=== PATIENT | male | born 1980 | race Caucasian/White ===

== ENCOUNTER 2016-11-17 02:08 | Day surgery (SDC) ==
[2016-11-17 02:16] VITALS: BP 175/78
--- NOTE | 2016-11-17 03:01 | PROVIDER DOCUMENTATION ---
HPI-General Adult - General Source: patient - History of Present Illness -Gen Adult Nature of Presenting Problems: 36 year old M presents to the ED with a cc of a foreign body in rectum. PT states that he has had a vibrator in rectum x1 hour and his is unable to get it out. Location of Pain/Injury: reports: other (rectum) Pain Radiation: reports: no radiation Severity: reports: mild Onset/Duration: reports: 1-3 hours ago Timing: reports: still present Similar Symptoms Previously?: No Recently seen or treated by another doctor?: No <Jennifer Camacho - Last Filed: 11/17/16 02:58> - General Source: patient <Francesco Salas - Last Filed: 11/17/16 04:28> - General Chief Complaint: General Adult Stated Complaint: FB IN RECTUM Time Seen by Provider: 11/17/16 02:30 Allergies/Adverse Reactions: Patient Allergies Allergy/AdvReac Type Severity Reaction Status Date / Time No Known Allergies Allergy Verified 11/17/16 02:17 Home Medications: Home Medication List Medication Instructions Recorded Confirmed Last Taken Type No Home Medications 11/17/16 11/17/16 Unknown History Review of Systems - Adult - REVIEW OF SYSTEMS - ADULT Constitutional: denies: chills, fever Eyes: reports: no symptoms reported Ears, Nose, Mouth & Throat: reports: no symptoms reported Cardiovascular: denies: chest pain, palpitations Respiratory: denies: cough, shortness of breath Gastrointestinal: denies: abdominal pain, diarrhea, nausea, vomiting Genitourinary: denies: dysuria, hematuria Musculoskeletal: reports: no symptoms reported Integumentary: reports: no symptoms reported Neurological: reports: no symptoms reported Psychiatric: reports: no symptoms reported Endocrine: reports: no symptoms reported Hematologic/Lymphatic: reports: no symptoms reported Allergic/Immunologic: reports: no symptoms reported All Other Systems: Reviewed and Negative <Jennifer Camacho - Last Filed: 11/17/16 02:58> Past History - Adult - PAST MEDICAL HISTORY-ADULT Review of Records: reports: Nursing Assessment Review, Medications Reviewed Major Childhood Illnesses: reports: denies history Cardiovascular: reports: denies history Respiratory: reports: denies history Gastrointestinal: reports: denies history Obstetrical/Gynecological: reports: denies history Genitourinary: reports: denies history Musculoskeletal: reports: denies history Neurological: reports: denies history Endocrine/Immune: reports: denies history Other Conditions: reports: denies history - PRIOR SURGERIES/PROCEDURES Surgical/Procedure History: reports: orthopedic (extremity) (amputation Right # 2 finger) - IMMUNIZATION STATUS Childhood Immunizations: See Nurse Assessment Flu Vaccine: See Nurse Assessment - FAMILY HISTORY Family History: reviewed, not pertinent - SOCIAL HISTORY Smoking: cigarettes Provider spent 3-5 mins advising pt. on dangers of tobacco.: Discussed manners to quit use, and f/u contacts for add'l counseling. Substance Use: none/never Alcohol Use Frequency: occasionally <Jennifer Camacho - Last Filed: 11/17/16 02:58> Physical Exam-General - PHYSICAL EXAM-ADULT Initial Vital Signs Reviewed: Yes - CONSTITUTIONAL General Appearance: appears well, alert, no apparent distress - RESPIRATORY Respiratory: chest non-tender, lungs clear, normal breath sounds - CARDIOVASCULAR Cardiovascular: normal peripheral pulses, regular rate, rhythm, no edema - GASTROINTESTINAL (ABDOMEN) Abdominal Exam: non tender, soft - SKIN Integumentary: normal color, normal turgor, warm/dry - PSYCHIATRIC Psych/Mental Status: normal mood/affect, normal thought content, normal thought process, oriented x 3 <Jennifer Camacho - Last Filed: 11/17/16 02:58> Procedures - ADDITIONAL PROCEDURES Additional Procedure: Anoscopy/Proctoscopy (Unable to remove FB in rectum with ring forceps) <Francesco Salas - Last Filed: 11/17/16 04:28> Departure <Jennifer Camacho - Last Filed: 11/17/16 02:58> - Departure Time of Disposition Order: 04:26 Certified Medical Emergency: Emergent <Francesco Salas - Last Filed: 11/17/16 04:28> - Departure DIAGNOSIS: Foreign body accidentally entering opening of body cavity Disposition: OTHER 70 Condition: Good Attestation - Scribe Verification/Attestation Scribe:: Jennifer Camacho Acting as Scribe for:: Francesco Salas Scribe documention review:: This chart was documented by a scribe and accurately reflects the service the provider performed and the decisions made by the provider. <Jennifer Camacho - Last Filed: 11/17/16 02:58> Physician Attestation - Physician Attestation I, the provider, attest to the following statement:: Francesco Salas Physician documentation Attestation:: This documentation recorded by the scribe accurately reflects the service I personally performed and the decisions made by me. <Jennifer Camacho - Last Filed: 11/17/16 02:58>
[2016-11-17] MEDS ORDERED: XYLOCAINE 2% VISCOUS MT ONE (03:25)
[2016-11-17] MEDS ORDERED: XYLOCAINE 2% JELLY ONE (03:30)
[2016-11-17] MEDS ORDERED: XYLOCAINE 2% JELLY TOP ONE (04:02)
[2016-11-17] MEDS ORDERED: TYLENOL PO ONE (04:58)
[2016-11-17 05:14] LABS: MANUAL DIFF NEEDED? NO
[2016-11-17 05:16] LABS: BASO% 0.6 % (0.0-0.8); EOS# 0.23 X1000 (0.0-0.7); EOS% 2.5 % (0.0-10.0); HEMATOCRIT 37.3 % (42.0-52.0); HEMOGLOBIN 12.6 g/dL (14.0-18.0); IMM GRAN# 0.02 X1000 (0.0-0.04); IMM GRAN% 0.2 % (0.0-0.5); LYMPH# 2.76 X1000 (1.2-3.4); LYMPH% 29.6 % (20.5-51.1); MCH 31.3 PG (27-31); MCHC 33.8 g/dL (33-37); MCV 92.6 FL (81-99); MONO# 0.85 X1000 (0.11-0.59); MONO% 9.1 % (1.7-9.3); MPV 9.9 FL (7.4-10.4); PLT 214 X1000 (130-400); RBC 4.03 XMIL (4.7-6.1)
[2016-11-17 05:28] LABS: AGAP 11; BUN 18 mg/dL (8-22); CALCIUM 8.6 mg/dL (8.8-10.2); CHLORIDE 104 mmol/L (98-107); COSMO 283; POTASSIUM 3.7 mmol/L (3.5-5.1); SODIUM 140 mmol/L (136-145); TCO2 25 mmol/L (25-35)
--- NOTE | 2016-11-17 06:36 | Diag Imaging Result Document ---
PROCEDURE NAME: KATIANA ABDOMEN - 11/17/2016 ABDOMEN SINGLE VIEW: FINDINGS: There is stool throughout the colon. The bowel loops are not dilated. No organomegaly. No abnormal abdominal or pelvic calcifications. There is a mechanical device/foreign body overlying the mid pelvis and sacrum. This was not present on the study from 12/2011. IMPRESSION: 1. Constipation. 2. Foreign body overlies the pelvis. MTDD
[2016-11-17] MEDS ORDERED: NS 1,000 ML IV SCH (07:00)
[2016-11-17] MEDS ORDERED: FLUZONE QUAD 2016-2017 SYRINGE IM ONE (08:35)
--- NOTE | 2016-11-17 10:01 | Diag Imaging Result Document ---
PROCEDURE NAME: KATIANA ABDOMEN - 11/17/2016 ABDOMEN SINGLE VIEW: COMPARISON: Compared to 11/17/2016 at 2:40 a.m. FINDINGS: The foreign body overlying the pelvis is no longer present. There is stool which remains throughout the colon. No organomegaly. No abnormal abdominal calcification. There is a pelvic phlebolith. IMPRESSION: 1. The foreign body is no longer present in the rectum/sigmoid colon. 2. Constipation.
--- NOTE | 2016-11-17 10:04 | HISTORY AND PHYSICAL ---
CHIEF COMPLAINT: Foreign body in the rectum. HISTORY: This is a 36-year-old who admits to placing a vibrator in his rectum last night around midnight; he has not been able to get out the foreign body. He presents to the emergency department because of that. He denies any medical problems. Denies any history of surgery. ALLERGIES: He has no known drug allergies. MEDICATIONS: No home medications. 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 SOCIAL HISTORY: Does smoke cigarettes. Denies substance abuse. Otherwise occasionally drinks alcohol. FAMILY HISTORY: Noncontributory. REVIEW OF SYSTEMS: Negative in the review of systems. PHYSICAL EXAMINATION: VITAL SIGNS: He is afebrile. Heart rate 109, respiratory rate 18, blood pressure 175/78. NECK: No cervical adenopathy. LUNGS: Bilateral breath sounds. HEART: Regular rhythm. ABDOMEN: Soft, nontender. RECTAL EXAM: Was not performed. KUB shows the foreign body in his rectum. Quite a bit of stool was noted in his colon. ASSESSMENT: Foreign body of the rectum. PLAN: The plan will be removal of the foreign body under anesthesia. Discussed this with him and he understands.
== END 2016-11-17 10:20 | disposition home or self-care (01) ==
LOC: ED 02:08 → OPS 05:55 → 4N 07:45 → OPS 10:20
PROVIDERS: ATTEND Surgery
DX: T18.5XXA Foreign body in anus and rectum, initial encounter (principal); F17.210 Nicotine dependence, cigarettes, uncomplicated; Z89.021 Acquired absence of right finger(s); Z71.6 Tobacco abuse counseling; Z23 Encounter for immunization
CPT/HCPCS: 36415; 74000; 80048; 85025; 99285; Q2038

== ENCOUNTER 2016-12-16 01:25 | Inpatient (IN) ==
[2016-12-16] MEDS ORDERED: DUONEB (A & A) INH ONE (01:32)
--- NOTE | 2016-12-16 01:39 | PROVIDER DOCUMENTATION ---
HPI-General Adult - General Source: patient - History of Present Illness -Gen Adult Nature of Presenting Problems: 36 Y/O M presents to ED with General c/o. Pt states he's had flu like symptoms for 4 days, hasn't been to work due to the symptoms. Pt was brought in by EMS, c /o of body aches, weakness, SOB, cough, headache. Location of Pain/Injury: reports: generalized Pain Radiation: reports: no radiation Quality of Pain: reports: none Severity: reports: mild, moderate Onset/Duration: reports: 4 days ago Timing: reports: still present Context/Activities at Onset: reports: none Associated Symptoms: reports: cough, fever/chills, headaches, muscle aches, weakness. denies: nausea <Pooja Almeida - Last Filed: 12/16/16 02:51> <Ede Pichardo - Last Filed: 12/16/16 05:33> - General Chief Complaint: Cold Symptoms Stated Complaint: flu like s/s Time Seen by Provider: 12/16/16 01:31 Allergies/Adverse Reactions: Patient Allergies Allergy/AdvReac Type Severity Reaction Status Date / Time No Known Allergies Allergy Verified 12/16/16 02:16 Home Medications: Home Medication List Medication Instructions Recorded Confirmed Last Taken Type No Home Medications 11/17/16 12/16/16 Unknown History Review of Systems - Adult - REVIEW OF SYSTEMS - ADULT Constitutional: reports: fever. denies: chills Eyes: reports: no symptoms reported Ears, Nose, Mouth & Throat: reports: no symptoms reported Cardiovascular: reports: no symptoms reported Respiratory: reports: cough, wheezing Gastrointestinal: denies: abdominal pain, diarrhea, nausea, vomiting Genitourinary: reports: no symptoms reported Musculoskeletal: reports: muscle aches Integumentary: reports: no symptoms reported Neurological: reports: headache/migraines Psychiatric: reports: no symptoms reported Endocrine: reports: no symptoms reported Hematologic/Lymphatic: reports: no symptoms reported Allergic/Immunologic: reports: no symptoms reported All Other Systems: Reviewed and Negative <Pooja Almeida - Last Filed: 12/16/16 02:51> Past History - Adult - PAST MEDICAL HISTORY-ADULT Review of Records: reports: Old Records Reviewed, Nursing Assessment Review, Medications Reviewed, Social history reviewed & non-contributory. Major Childhood Illnesses: reports: denies history Cardiovascular: reports: denies history Respiratory: reports: denies history Gastrointestinal: reports: denies history Obstetrical/Gynecological: reports: denies history Genitourinary: reports: denies history Musculoskeletal: reports: denies history Neurological: reports: denies history Endocrine/Immune: reports: denies history Other Conditions: reports: denies history - PRIOR SURGERIES/PROCEDURES Surgical/Procedure History: reports: orthopedic (extremity) (amputation Right # 2 finger) - IMMUNIZATION STATUS Childhood Immunizations: See Nurse Assessment Flu Vaccine: See Nurse Assessment - FAMILY HISTORY Family History: reviewed, not pertinent - SOCIAL HISTORY Smoking: cigarettes, greater than 1 pack/day Living Situation: family <Pooja Almeida - Last Filed: 12/16/16 02:51> Physical Exam-General - PHYSICAL EXAM-ADULT Initial Vital Signs Reviewed: Yes - CONSTITUTIONAL General Appearance: appears well, alert, no apparent distress - EYES Eyes: PERRL/EOMI, pink conjunctivae, fundi clear, no AV nicking - HEAD, EARS, NOSE, MOUTH & THROAT HENMT: normocephalic/atraumatic, moist mucous membranes, normal ENT inspection, TMs normal, pharynx normal - NECK Neck: non-tender, full range of motion, supple, normal inspection - RESPIRATORY Respiratory: chest non-tender, wheezing (bilateral) - CARDIOVASCULAR Cardiovascular: tachycardia - GASTROINTESTINAL (ABDOMEN) Abdominal Exam: normal bowel sounds, non tender, soft - LYMPHATIC Lymphatic: no adenopathy - MUSCULOSKELETAL Back Exam: normal inspection, no CVA tenderness, no vertebral tenderness Extremity: normal range of motion, non-tender, normal gait - SKIN Integumentary: normal color, normal turgor, warm/dry - NEUROLOGIC Neurologic: traffic circuit engineer II-XII nml as tested, grossly normal - PSYCHIATRIC Psych/Mental Status: normal mood/affect, normal thought content, normal thought process, oriented x 3 <Pooja Almeida - Last Filed: 12/16/16 02:51> Progress - REASSESSMENT Reassessment #1 Time Reassessed: 02:51 ( spoke to Pt about sexual history,due to previous findings and hospital visit. Pt states that he does use vibrators for pleasure, but has not had sexual activity or sexual contact in many months. PT agrees to do an HIV test, states never been tested before for one.) Status: improving - XRAY 1 XRAY Study: Chest Impression: Abnormal XRAY Interpretation: pneumonia <Pooja Almeida - Last Filed: 12/16/16 02:51> - REASSESSMENT Reassessment #1 Time Reassessed: 04:15 Status: improving - CT/MRI 1 CT Study: Angiogram (no pe/atypical bilat infection) - CONSULTS/PCP/HOSPITALIST Notification #1 *Consult/PCP/Hospitalist*: dr perez Time Discussed: 04:16 (recomended to get chest ct) #2 Consult: dr perez Time Discussed: 05:33 ([facility] report) <Ede Pichardo - Last Filed: 12/16/16 05:33> Departure <Pooja Almeida - Last Filed: 12/16/16 02:51> - Departure Time of Disposition Order: 04:17 Certified Medical Emergency: Emergent <Ede Pichardo - Last Filed: 12/16/16 05:33> - Departure DIAGNOSIS: SOB (shortness of breath), Atypical pneumonia Disposition: ADMITTED INPATIENT 09 Condition: Stable Referrals: None,PCP [Primary Care Provider] - Attestation - Scribe Verification/Attestation Scribe:: Pooja Almeida Acting as Scribe for:: Ede Pichardo Scribe documention review:: This chart was documented by a scribe and accurately reflects the service the provider performed and the decisions made by the provider. <Pooja Almeida - Last Filed: 12/16/16 02:51> Physician Attestation
[2016-12-16] MEDS ORDERED: LEVAQUIN 750 MG/D5W 150 ML IV ONE (01:50)
[2016-12-16] MEDS ORDERED: ROCEPHIN 1 GM/NS 50 ML IV ONE (01:50)
[2016-12-16 02:38] LABS: BASO% 3.6 % (0.0-0.8); EOS# 0.07 X1000 (0.0-0.7); EOS% 0.8 % (0.0-10.0); HEMATOCRIT 36.6 % (42.0-52.0); IMM GRAN# 0.02 X1000 (0.0-0.04); IMM GRAN% 0.2 % (0.0-0.5); LYMPH# 4.39 X1000 (1.2-3.4); LYMPH% 47.8 % (20.5-51.1); MANUAL DIFF NEEDED? NO; MCH 30.2 PG (27-31); MCHC 32.8 g/dL (33-37); MCV 92.2 FL (81-99); MONO# 0.86 X1000 (0.11-0.59); MONO% 9.4 % (1.7-9.3); MPV 9.8 FL (7.4-10.4); NEUT% 38.2 % (42.2-75.2); PLT 196 X1000 (130-400); RBC 3.97 XMIL (4.7-6.1)
[2016-12-16 02:49] LABS: AGAP 13; ALBUMIN 3.3 g/dL (3.5-5.0); ALKALINE PHOSPHATASE 91 U/L (32-122); BUN 7 mg/dL (8-22); CALCIUM 8.6 mg/dL (8.8-10.2); CHLORIDE 103 mmol/L (98-107); COSMO 278; GOT 34 U/L (10-34); GPT 36 U/L (10-44); POTASSIUM 3.9 mmol/L (3.5-5.1); SODIUM 140 mmol/L (136-145); TCO2 24 mmol/L (25-35); TOTAL BILIRUBIN 0.37 mg/dL (0.20-1.00); TOTAL PROTEIN 6.6 g/dL (6.3-8.3)
[2016-12-16] MEDS ORDERED: TORADOL IV ONE (03:17)
[2016-12-16] MEDS ORDERED: TYLENOL PO ONE (03:17)
[2016-12-16 03:50] LABS: ALLEN TEST YES; BE 1.7 mmoll (-3.0-3.0); BLOOD TYPE ARTERIAL; DRAW SITE R BRACHIAL; O2(CT) 19.1 mL/dL (15.0-23.0); PCO2(98.6) 38 mmHg (35-45); PO2(98.6) 68 mmHg (60-100); SAMPLE BLOOD; SAO2 95.1 % (95.0-100.0); pH(98.6) 7.44 (7.35-7.45)
[2016-12-16 03:52] LABS: MODALITY ROOM AIR
[2016-12-16] MEDS ORDERED: LEVAQUIN 750 MG in NS 150 ML IV SCH (06:15)
--- NOTE | 2016-12-16 07:21 | Diag Imaging Result Document ---
PROCEDURE NAME: CHEST-2 VIEWS - 12/16/2016 FRONTAL AND LATERAL CHEST, TWO VIEWS: COMPARISON: 09/03/2012. FINDINGS: There are multifocal nodular infiltrates bilaterally which have developed since the prior study. The heart is borderline mildly prominent. No pleural effusions. IMPRESSION: Diffuse bilateral nodular infiltrates.
--- NOTE | 2016-12-16 07:23 | HISTORY AND PHYSICAL ---
CHIEF COMPLAINT: Cough and shortness of breath x4 days. HISTORY OF PRESENTING ILLNESS: A 36-year-old male who presents to emergency department with 4 days history of having a persistent cough that is productive and was short of breath. He was evaluated in the ER, he was somewhat hypoxic. He was put on supplemental oxygen and given some nebulizer treatment and it was thought that he would need hospitalization for further management. He had imaging done which did show some bilateral had infiltrate suspicious for pneumonia. It is probably atypical, and this will require hospitalization for further management. At the time of my examination, he had denied any headache, chest pain, hemoptysis, or weight changes but complained to having some shortness of breath and persistent cough. PAST MEDICAL HISTORY: None. PAST SURGICAL HISTORY: None. ALLERGIES: No known drug allergies. CURRENT MEDICATIONS: None. SOCIAL HISTORY: Ten pack years history of smoking. Admits to social alcohol use. Denies any illicit drug use. FAMILY HISTORY: Positive for coronary disease in father. REVIEW OF SYSTEMS: Twelve point review of systems as listed in the HPI. Other systems negative. PHYSICAL EXAMINATION: GENERAL: Cooperative, friendly male. He is resting more comfortably now. VITAL SIGNS: Temperature 98.9 degrees, pulse 86, respiration 19, blood pressure 165/92, he is saturating 99%. HEENT: Atraumatic, normocephalic. Extraocular movements intact. PERRLA. NECK: No masses. CHEST: Rhonchi. CARDIOVASCULAR: Regular rate and rhythm. ABDOMEN: Soft. Positive bowel sounds. EXTREMITIES: No edema. NEUROLOGIC: He is awake, alert, oriented x3. : No bladder distention. SKIN: Warm. LABORATORIES AND STUDIES: WBCs 9.18, hemoglobin 12.1, hematocrit 36.6, platelets 196,000. PO2 is 68. Sodium 140, potassium 3.9, chloride 103, CO2 24, BUN is 7. Creatinine is 1.0, glucose is 107. ASSESSMENT: A 36-year-old male without any significant past medical history who presented to the emergency department with 4 days' history of coughing and shortness of breath. He was somewhat hypoxic during his initial presentation, and imaging showed bilateral infiltrates as per ER physician, and due to these findings it was thought that he would need hospitalization for further management. 1. Suspected pneumonia. 2. Hypoxemia. PLAN: 1. We will admit patient to medical floor with telemetry. 2. We will continue patient on supplemental oxygen. Chevy. 3. We will start patient on IV antibiotics and check blood cultures. 4. We will check an HIV screen. 5. We will put patient on DVT prophylaxis with SCDs. 6. We will continue to follow and reassess.
--- NOTE | 2016-12-16 09:40 | Diag Imaging Result Document ---
PROCEDURE NAME: ANGIOGRAM/PULMONARY ARTERIES - 12/16/2016 CTA CHEST: COMPARISON: None available. FINDINGS: There is no evidence of pulmonary embolism. There is no evidence of aortic dissection or aneurysm. There are Innumerable ill-defined nodular densities scattered throughout both lungs. Some exhibit tiny internal cavitations. Differential considerations include atypical infection with cavitation. Metastatic disease with cavitation is possible. Less likely, Krystina's granulomatosis should be considered. There is trace pleural fluid on the right, and there is a very small pericardial fluid collection. There is no evidence of pneumothorax. IMPRESSION: 1. Innumerable ill-defined nodular densities scattered throughout both lungs, some of which exhibit vague internal cavitation. Please see the above discussion. 2. Marked mediastinal and hilar lymphadenopathy. 3. No evidence of pulmonary embolism.
[2016-12-16] MEDS: NS 1,000 ML IV SCH (18:53)
[2016-12-16 19:31] LABS: AGAP 14; ALBUMIN 3.4 g/dL (3.5-5.0); ALKALINE PHOSPHATASE 105 U/L (32-122); BUN 10 mg/dL (8-22); CALCIUM 8.8 mg/dL (8.8-10.2); CHLORIDE 102 mmol/L (98-107); COSMO 279; GOT 33 U/L (10-34); GPT 34 U/L (10-44); POTASSIUM 3.8 mmol/L (3.5-5.1); SODIUM 140 mmol/L (136-145); TCO2 24 mmol/L (25-35); TOTAL BILIRUBIN 0.33 mg/dL (0.20-1.00); TOTAL PROTEIN 6.7 g/dL (6.3-8.3)
--- NOTE | 2016-12-16 20:38 | PROGRESS NOTE ---
DATE: 12/16/2016 SUBJECTIVE: I was called by the nurse because this patient has been taking medications on his own. Apparently he took cold medications because he was asking for pain medication and nobody was giving him that. I saw the records and he received acetaminophen 650 mg p.o. once at 3 a.m. and also he received Ketoralac 30 mg IV around the same hour. As per the nurse, he told her that he wants pain medication once, apparently this patient left the building, went outside but we do not know why, and then he came back. Then the nurse called me because she realized that this patient was taking medication by himself. When I saw the cold medication, he took around 6.5 g of acetaminophen and also he received in the emergency department like I mentioned before 650 mg at 1 time. So this patient received a total of more than 7 g at least. He talked to the nurses that he took all the pills that were inside the box and he told me that he took just a half of one of the boxes and 4 of another box. An NG tube was placed and I put this patient on IV fluids at 125 mL/h. I called the retail warehouse associate and I will transfer this patient to ICU for close observation. I asked for a CMP level every 4 hours and also acetaminophen level every 4 hours. I already talked to the nurse practitioner about this case, and I have an acetaminophen level result back, it is low for now, but we will continue to monitor this patient in the ICU. Also, I have an AST, ALT and alkaline phosphatase that is completely normal. AST 33, ALT 34, alkaline phosphatase 105, total bilirubin 0.33. For now I am not going to start any treatment, just IV fluids. We will avoid acetaminophen and we will continue with levofloxacin for the possible atypical pneumonia. OBJECTIVE: Vital Signs: Temperature 98.7 degrees, pulse 88, respiratory rate 15, O2 saturation 95% on room air. HEENT: Head normocephalic. No trauma. PERRLA. Neck: Supple. No JVD. No masses. Central trachea. Chest: Bilateral scattered rhonchi bilaterally. Abdomen: Soft, nontender, nondistended. Extremities: No edema. No clubbing. No cyanosis. Neurological examination: The patient is alert and oriented x3. No focal neurological deficit. LABORATORY: Sodium 140, potassium 3.8, chloride 102, bicarbonate 24, BUN 10, creatinine 1.1, glucose 105, calcium 8.8, AST 33, ALT 34, alkaline phosphatase 105, albumin 3.4. ASSESSMENT AND PLAN: 1. Suspected atypical pneumonia. Pulmonary Department has been consulted, pending recommendations. For now this patient will continue with IV fluids and with quinolones. 2. Hypoxemia. The patient at this moment is not having any hypoxemia even though he is not on oxygen. We will continue to monitor. 3. Possible acetaminophen intoxication. This patient took more than 7.5 g in the past 24 hours, at least 6.5 g by himself. We will transfer this patient to the ICU and I will monitor the CBC and acetaminophen level. 4. I talked to the patient and I explained to him the risk of having taken acetaminophen by himself. This patient looks noncooperative and I can see that this tony is also aggressive.
[2016-12-16 21:22] LABS: UR AMPHETAMINES QUAL NONE DETECTED (NONE DETECT); UR BARBITUATES QUAL NONE DETECTED (NONE DETECT); UR BENZODIAZEPIN QUAL NONE DETECTED (NONE DETECT); UR CANNABINOIDS QUAL NONE DETECTED (NONE DETECT); UR COCAINE QUAL PRESUMPTIVE POSITIVE (NONE DETECT); UR METHADONE QUAL NONE DETECTED (NONE DETECT); UR OPIATES QUAL NONE DETECTED (NONE DETECT); UR OXYCODONE QUAL NONE DETECTED (NONE DETECT); UR PCP QUAL NONE DETECTED (NONE DETECT)
--- NOTE | 2016-12-16 22:41 | Diag Imaging Result Document ---
PROCEDURE NAME: CHEST/ABD TUBE PLACEMENT - 12/16/2016 SINGLE FRONTAL RADIOGRAPH OF THE LOWER CHEST AND UPPER ABDOMEN: COMPARISON: Chest radiograph dated 12/16/2016. FINDINGS: There is a newly placed NG tube with the tip projecting well below the diaphragm and assumed to be in the stomach in the expected position. Limited views of the lung bases are grossly stable. IMPRESSION: Interval placement of NG tube in the expected position as described.
[2016-12-16 22:46] LABS: AGAP 11; ALBUMIN 3.3 g/dL (3.5-5.0); ALKALINE PHOSPHATASE 100 U/L (32-122); BUN 10 mg/dL (8-22); CALCIUM 8.9 mg/dL (8.8-10.2); CHLORIDE 102 mmol/L (98-107); COSMO 277; GOT 27 U/L (10-34); GPT 33 U/L (10-44); POTASSIUM 4.5 mmol/L (3.5-5.1); SODIUM 139 mmol/L (136-145); TCO2 26 mmol/L (25-35); TOTAL BILIRUBIN 0.31 mg/dL (0.20-1.00); TOTAL PROTEIN 6.8 g/dL (6.3-8.3)
[2016-12-17] MEDS: NS 1,000 ML IV SCH ×2 (02:52→11:57)
[2016-12-17] MEDS ORDERED: LEVAQUIN 750 MG/D5W 150 ML IV SCH (03:00)
[2016-12-17 03:58] LABS: BASO% 2.2 % (0.0-0.8); EOS# 0.03 X1000 (0.0-0.7); EOS% 0.3 % (0.0-10.0); HEMATOCRIT 31.2 % (42.0-52.0); HEMOGLOBIN 10.2 g/dL (14.0-18.0); IMM GRAN# 0.04 X1000 (0.0-0.04); IMM GRAN% 0.4 % (0.0-0.5); LYMPH# 5.03 X1000 (1.2-3.4); LYMPH% 54.9 % (20.5-51.1); MANUAL DIFF NEEDED? YES; MCH 30.2 PG (27-31); MCHC 32.7 g/dL (33-37); MCV 92.3 FL (81-99); MONO# 0.88 X1000 (0.11-0.59); MONO% 9.6 % (1.7-9.3); MPV 9.7 FL (7.4-10.4); NEUT% 32.6 % (42.2-75.2); PLT 184 X1000 (130-400); RBC 3.38 XMIL (4.7-6.1)
[2016-12-17 04:05] LABS: INR 1.16; PROTIME 12.3 Seconds (9.2-11.7)
[2016-12-17 04:09] LABS: BANDS 4 % (0-1); BASO 2 % (0-1); LYMPHS 52 % (21-51); MONO 8 % (1-9)
[2016-12-17 04:10] LABS: AGAP 12; ALBUMIN 2.9 g/dL (3.5-5.0); ALKALINE PHOSPHATASE 83 U/L (32-122); BUN 8 mg/dL (8-22); CALCIUM 7.1 mg/dL (8.8-10.2); CHLORIDE 107 mmol/L (98-107); COSMO 279; GOT 23 U/L (10-34); GPT 26 U/L (10-44); POTASSIUM 3.4 mmol/L (3.5-5.1); SODIUM 140 mmol/L (136-145); TCO2 21 mmol/L (25-35); TOTAL BILIRUBIN 0.24 mg/dL (0.20-1.00)
[2016-12-17] MEDS ORDERED: KLOR-CON PO ONE ×2 (06:09→08:31)
[2016-12-17] MEDS ORDERED: PRINIVIL PO SCH (09:00)
[2016-12-17 09:07] LABS: AGAP 14; ALKALINE PHOSPHATASE 93 U/L (32-122); BUN 7 mg/dL (8-22); CALCIUM 8.6 mg/dL (8.8-10.2); CHLORIDE 101 mmol/L (98-107); COSMO 270; GOT 24 U/L (10-34); GPT 28 U/L (10-44); SODIUM 136 mmol/L (136-145); TCO2 21 mmol/L (25-35); TOTAL PROTEIN 6.5 g/dL (6.3-8.3)
[2016-12-17 09:59] LABS: HIV ANTIBODY SCREEN SEE COMMENTS (())
[2016-12-17 12:12] VITALS: BP 148/84
--- NOTE | 2016-12-17 12:40 | PROGRESS NOTE ---
DATE: 12/17/2016 SUBJECTIVE: This patient states that he is feeling better. He is still complaining of mild shortness of breath and chest pain but compared with admission and yesterday, he feels better. This patient told me yesterday that he did not do drugs before, but we have a positive cocaine result in the drug screen. I talked to him today again about this issue, and he told me that he forgot to tell me yesterday, and he does cocaine sporadically. OBJECTIVE: Vital signs: Temperature 98.8, pulse 93, respiratory rate 18, blood pressure 158/96, oxygen saturation 95 on room air. HEENT: Head normocephalic, no trauma, JANY. Neck: No JVD, no masses. Central trachea. Chest: Bilateral scattered rhonchi. No wheezing, no rales. Abdomen: Soft, nontender, nondistended, no hepatosplenomegaly. Extremities: No edema, no clubbing, no cyanosis. Neurological: The patient is alert and oriented x3, no focal neurologic deficits. LABORATORY: WBC 9.1, hemoglobin 10.2, hematocrit 31.2, platelets 184. Sodium 136, potassium 4, chloride 101, bicarbonate 21, BUN 7, creatinine 1, glucose 106, calcium 8.6. Albumin 3. Acetaminophen level less than 1.2. Urine cocaine screen positive. HIV nonreactive. ASSESSMENT AND PLAN: 1. Atypical pneumonia. I will continue with the same treatment. He is getting better. Probably I will discharge this patient tomorrow. He is getting levofloxacin and IV fluids. 2. Hypoxemia. This patient is on room air, and he is not having any low oxygen saturation. Resolved. 3. Possible acetaminophen intoxication. This patient took more than 7.5 g in a period of less than 24 hours. We monitored the acetaminophen level and the liver function tests, and all of them are stable. I will transfer this patient to a medical floor to continue with his treatment. 4. Hypertension. This patient has been having his systolic blood pressure around the 150s. I will start this patient on MARLENY inhibitors. I will avoid beta-blockers because of the risk of cocaine abuse, and I will monitor the blood pressure. 5. Cocaine abuse. This patient states that he is not doing it every day, just occasionally. The last time that he did that was 1 week ago, as per the patient. I advised this patient against drug abuse and I will continue with daily cessation education.
[2016-12-18] MEDS ORDERED: LEVAQUIN PO SCH (09:00)
== END 2016-12-17 16:19 | disposition left against medical advice (07) | DRG 195 ==
LOC: EDBD → ED 01:25 → EDIPHOLD 06:28 → 3N 12:27 → ICU 21:06
PROVIDERS: ATTEND Internal Medicine
DX: J18.9 Pneumonia, unspecified organism (principal); I10 Essential (primary) hypertension; F17.210 Nicotine dependence, cigarettes, uncomplicated; Z89.021 Acquired absence of right finger(s); R09.02 Hypoxemia; Z82.49 Family history of ischemic heart disease and other diseases of the circulatory system; T39.1X1A Poisoning by 4-Aminophenol derivatives, accidental (unintentional), initial encounter; Z91.14 Patient's other noncompliance with medication regimen; F14.10 Cocaine abuse, uncomplicated
CPT/HCPCS: 71020; 71275; 74000; 80053; 82805; 83605; 83880; 85025; 85610; 86701; 87040; 87804; 94640; 94761; 94799; G0480; J0696; J1885; J7030; Q9967; 80324; 80345; 80346; 80349; 80353; 80358; 80361; 80365; 83992

== ENCOUNTER 2019-05-18 14:28 | Inpatient (IN) ==
--- NOTE | 2019-05-18 14:35 | PROVIDER DOCUMENTATION ---
HPI-Chest Pain - General Chief Complaint: Chest Pain Stated Complaint: CHEST PAIN Time Seen by Provider: 05/18/19 14:31 Source: patient Allergies/Adverse Reactions: Patient Allergies Allergy/AdvReac Type Severity Reaction Status Date / Time No Known Allergies Allergy Verified 05/18/19 15:16 Home Medications: Home Medication List Medication Instructions Recorded Confirmed Last Taken Type NK [No Home Medications] 05/18/19 05/18/19 Unknown History - History of Present Illness-CP Nature of Presenting Problem: 38 yr old M, hx of substance abuse, presenting with a several hour history of left sided chest pain. States it started this morning, about 10AM, was constant, 5/10, with some radiation of uncomfortable "shocks" down the left arm. Pain did not resolve, prompting the patient to come in to the ED. He denies nausea, vomiting, shortness of breath, dizziness. No reproduction of pain with palpation of chest. Denies any heavy lifting, though the patient reports running 5 miles at 7am this morning, which he does twice a week for the past two months, in addition to a daily walk. . States he took two Luna aspirins when the pain started, and had mild improvement an hour after taking the medicine. States s imilar symptoms did occur previously, earlier this week, only lasting a few minutes. Denies any substance use, stating he has been off of opioid use of a little over a year, and has stopped smoking as of two weeks ago Location: reports: substernal Chest Pain Radiation: reports: arms (radiation of uncomfortable shocks down the left arm) Quality of Pain: reports: other (patient not able to describe quality of pain - just insists that it is painful) Severity in ED: mild Onset/Duration: 4-6 hours ago Timing: still present, improving, constant Context/Activities at Onset: reports: none Modifying Factors: improves with: analgesics Associated Symptoms: reports: denies symptoms Nitro Today/Relief: no nitro taken today Aspirin Treatment Today: 325 mg x 1, provided at home Similar Symptoms Previously?: Yes (earlier this week, lasted for a few minutes) Recently Seen Here or By Another Healthcare Provider: No Review of Systems - Adult - REVIEW OF SYSTEMS - ADULT Constitutional: reports: no symptoms reported Eyes: reports: no symptoms reported Ears, Nose, Mouth & Throat: reports: no symptoms reported Cardiovascular: reports: see HPI, chest pain Respiratory: reports: no symptoms reported Gastrointestinal: reports: no symptoms reported Genitourinary: reports: no symptoms reported Musculoskeletal: reports: no symptoms reported Neurological: reports: no symptoms reported Psychiatric: reports: no symptoms reported Endocrine: reports: no symptoms reported Hematologic/Lymphatic: reports: no symptoms reported Allergic/Immunologic: reports: no symptoms reported Past History - Adult - PAST MEDICAL HISTORY-ADULT Review of Records: reports: Nursing Assessment Review, Medications Reviewed Major Childhood Illnesses: reports: denies history Cardiovascular: reports: denies history Respiratory: reports: denies history Gastrointestinal: reports: denies history Obstetrical/Gynecological: reports: denies history Genitourinary: reports: denies history Musculoskeletal: reports: denies history Neurological: reports: denies history Endocrine/Immune: reports: denies history Other Conditions: reports: denies history - PRIOR SURGERIES/PROCEDURES Surgical/Procedure History: reports: orthopedic (extremity) (amputation Right #2 finger) - IMMUNIZATION STATUS Childhood Immunizations: See Nurse Assessment Flu Vaccine: See Nurse Assessment - FAMILY HISTORY Family History: CAD under 55yo (father had ICD placed at age 46; uncle passed from [place] around same age; aunt had heart disease as well) - SOCIAL HISTORY Smoking: quit less than 1 year, cigarettes (1 ppd for 19 yrs; quit 2-3 wks ago) Substance Use: none presently/history of abuse Physical Exam-General - PHYSICAL EXAM-ADULT Initial Vital Signs Reviewed: Yes - CONSTITUTIONAL General Appearance: appears well, alert, no apparent distress - EYES Eyes: PERRL/EOMI - HEAD, EARS, NOSE, MOUTH & THROAT HENMT: normocephalic/atraumatic, moist mucous membranes, normal ENT inspection - NECK Neck: non-tender, full range of motion - RESPIRATORY Respiratory: chest non-tender, lungs clear, normal breath sounds, no respiratory distress - CARDIOVASCULAR Cardiovascular: regular rate, rhythm, no JVD, no murmur - GASTROINTESTINAL (ABDOMEN) Abdominal Exam: normal bowel sounds, non tender, soft - MUSCULOSKELETAL Extremity: no pedal edema, no calf tenderness, other (well healed surgical amputation of right index finger at the DIP) - SKIN Integumentary: normal color - PSYCHIATRIC Psych/Mental Status: normal mood/affect - HEART Score HEART Score: History: Slightly Suspicious HEART Score: ECG: Normal HEART Score: Age: < or = 45 Years HEART Score: Risk Factors for Atherosclerotic Disease: > or = 3 Risk Factors or History of Atherosclerotic Disease HEART Score: Troponin: < or = Normal Limit Total HEART Score:: 2 Progress - PLAN OF CARE/RESULTS Progress/Plan/Lab Results: Vital Signs - 8 hr 05/18/19 14:32 05/18/19 17:55 Temperature 97.4 F L 97.9 F Pulse Rate 63 54 L Respiratory Rate 16 16 Blood Pressure 139/82 115/61 O2 Sat by Pulse Oximetry 98 99 Laboratory Results - last 24 hr 05/18/19 05/18/19 05/18/19 15:07 15:07 15:07 WBC 8.28 RBC 4.36 L Hgb 12.9 L Hct 38.1 L MCV 87.4 MCH 29.6 MCHC 33.9 RDW Std Deviation 12.4 Plt Count 221 MPV 9.9 Immature Gran % (Auto) 0.0 Neut % (Auto) 53.3 Lymph % (Auto) 35.0 [place] % (Auto) 7.6 Eos % (Auto) 3.3 Baso % (Auto) 0.8 Immature Gran # (Auto) 0.00 Neut # (Auto) 4.41 Lymph # (Auto) 2.90 [place] # (Auto) 0.63 H Eos # (Auto) 0.27 Baso # (Auto) 0.07 Sodium Potassium Chloride Carbon Dioxide Anion Gap BUN Creatinine Estimated GFR/1.73 m2 BUN/Creatinine Ratio Glucose Calculated Osmolality Calcium Total Bilirubin AST ALT Alkaline Phosphatase Creatine Kinase 202 Troponin T < 0.010 Total Protein Albumin Globulin Albumin/Globulin Ratio Urine Source Urine Color Urine Turbidity Urine pH Ur Specific [place] Urine Protein Ur Glucose (Stick) Ur Ketones (Stick) Urine Blood Urine Nitrite Urine Bilirubin Urobilinogen Dipstick Urine Leukocytes Urine WBC (Auto) Urine RBC (Auto) U Epithel Cells (Auto) Urine Bacteria (Auto) Urine Opiates Screen Ur Oxycodone Screen Ur Methadone, Qual Ur Barbiturates Screen Ur Phencyclidine Scrn Ur Amphetamines Screen U Benzodiazepines Scrn Urine Cocaine Screen U Cannabinoids Screen 05/18/19 05/18/19 05/18/19 15:07 15:57 15:57 WBC RBC Hgb Hct MCV MCH MCHC RDW Std Deviation Plt Count MPV Immature Gran % (Auto) Neut % (Auto) Lymph % (Auto) [place] % (Auto) Eos % (Auto) Baso % (Auto) Immature Gran # (Auto) Neut # (Auto) Lymph # (Auto) [place] # (Auto) Eos # (Auto) Baso # (Auto) Sodium 139 Potassium 3.7 Chloride 104 Carbon Dioxide 27 Anion Gap 8 BUN 16 Creatinine 1.1 Estimated GFR/1.73 m2 > 60 BUN/Creatinine Ratio 15 Glucose 104 Calculated Osmolality 279 Calcium 8.6 L Total Bilirubin 0.47 AST 13 ALT 12 Alkaline Phosphatase 63 Creatine Kinase Troponin T Total Protein 6.7 Albumin 4.4 Globulin 2.3 Albumin/Globulin Ratio 1.9 Urine Source CLEAN CATCH Urine Color YELLOW Urine Turbidity CLEAR Urine pH 6.0 Ur Specific [place] 1.024 Urine Protein NEGATIVE Ur Glucose (Stick) NEGATIVE Ur Ketones (Stick) NEGATIVE Urine Blood NEGATIVE Urine Nitrite NEGATIVE Urine Bilirubin NEGATIVE Urobilinogen Dipstick NORMAL Urine Leukocytes NEGATIVE Urine WBC (Auto) <10 Urine RBC (Auto) <10 U Epithel Cells (Auto) <10 Urine Bacteria (Auto) NEGATIVE Urine Opiates Screen NONE DETECTED Ur Oxycodone Screen NONE DETECTED Ur Methadone, Qual NONE DETECTED Ur Barbiturates Screen NONE DETECTED Ur Phencyclidine Scrn NONE DETECTED Ur Amphetamines Screen NONE DETECTED U Benzodiazepines Scrn NONE DETECTED Urine Cocaine Screen NONE DETECTED U Cannabinoids Screen NONE DETECTED 05/18/19 05/18/19 16:40 16:40 WBC RBC Hgb Hct MCV MCH MCHC RDW Std Deviation Plt Count MPV Immature Gran % (Auto) Neut % (Auto) Lymph % (Auto) [place] % (Auto) Eos % (Auto) Baso % (Auto) Immature Gran # (Auto) Neut # (Auto) Lymph # (Auto) [place] # (Auto) Eos # (Auto) Baso # (Auto) Sodium Potassium Chloride Carbon Dioxide Anion Gap BUN Creatinine Estimated GFR/1.73 m2 BUN/Creatinine Ratio Glucose Calculated Osmolality Calcium Total Bilirubin AST ALT Alkaline Phosphatase Creatine Kinase 182 Troponin T < 0.010 Total Protein Albumin Globulin Albumin/Globulin Ratio Urine Source Urine Color Urine Turbidity Urine pH Ur Specific [place] Urine Protein Ur Glucose (Stick) Ur Ketones (Stick) Urine Blood Urine Nitrite Urine Bilirubin Urobilinogen Dipstick Urine Leukocytes Urine WBC (Auto) Urine RBC (Auto) U Epithel Cells (Auto) Urine Bacteria (Auto) Urine Opiates Screen Ur Oxycodone Screen Ur Methadone, Qual Ur Barbiturates Screen Ur Phencyclidine Scrn Ur Amphetamines Screen U Benzodiazepines Scrn Urine Cocaine Screen U Cannabinoids Screen Orders Category Date Time Status CHEST-1 VIEW [RAD] Stat Exams 05/18/19 14:53 Completed CBC WITH ELECTRONIC DIFF [HEME] Stat Lab 05/18/19 15:07 Completed CK PROFILE [SP CHEM] Stat Lab 05/18/19 15:07 Completed CK PROFILE [SP CHEM] Stat Lab 05/18/19 16:40 Completed COMPREHENSIVE METABOLIC PANEL [CHEM] Stat Lab 05/18/19 15:07 Completed TROPONIN T Stat Lab 05/18/19 15:07 Completed TROPONIN T Stat Lab 05/18/19 16:40 Completed UA NIMS W/REFLEX CULT [URINALYSIS] Stat Lab 05/18/19 15:57 Completed URINE DRUG SCREEN Stat Lab 05/18/19 15:57 Completed Aspirin Med 05/18/19 15:00 Discontinued 325 mg PO NOW ONE Nitroglycerin Med 05/18/19 15:12 Discontinued 1 inch TOP NOW ONE EKG [EKG] Stat Ther 05/18/19 16:02 Draft EKG [EKG] Stat Ther 05/18/19 16:06 Draft Transfer/Admit Order [TRANSFER] Routine Transfer 05/18/19 17:45 Ordered Given pt's significant FHx as well as sinus arrhythmia on two EKGs, spoke with hospitalist regarding possible admission. Pt has had positive UDS before; waiting on repeat troponin and CK to determine if admission is appropriate at t his time. Result Diagrams: 05/18/19 15:07 05/18/19 15:07 - REASSESSMENT Reassessment #1 Time Reassessed: 04:55 Status: improving Reassessment Comment: Pt states pain is improving since his presentation - EKG 1 Time of EKG reading by physician:: 14:37 EKG Read and Signed by:: Zack Mitchell EKG Interpretation (*Must complete 3 of following elements*): Abnormal Rate: 66 Rhythm: sinus arrythmia [place]: normal QRS: normal CA Interval: normal ST Wave: normal 2 Time of EKG reading by physician:: 16:42 EKG Read and Signed by:: Zack Mitchell EKG Interpretation (*Must complete 3 of following elements*): Abnormal Rate: 51 Rhythm: sinus arrythmia QRS: normal ST Wave: normal Prior EKG Comparison: unchanged from prior - XRAY 1 XRAY Study: Chest Impression: Normal - CONSULTS/PCP/HOSPITALIST Notification #1 *Consult/PCP/Hospitalist*: Jacy Suarez Time Discussed: 17:08 Consult Disposition: other (Pending repeat troponin and call back) #2 Consult: Dr. Dumont Time Discussed: 17:54 Reason/Comments: Will admit Consult Disposition: Admit Departure - Departure Date of Disposition Decision: 05/18/19 Time of Disposition Decision: 17:46 DIAGNOSIS: Chest pain at rest Disposition: ADMITTED INPATIENT 09 Certified Medical Emergency: Emergent Condition: Fair - Critical Care Note This patient required my direct & personal management of CC.: No Attestation - Physician/ RICKIE Attestation Patient care was provided by Advanced Practice Provider:: No The physician spent face to face time with patient:: Yes Advanced Practice Provider documentation review:: Supervising physician onsite and consulted in the evaluation and care of this patient. The physician did have a face to face encounter with the patient.
[2019-05-18] MEDS ORDERED: ASPIRIN PO ONE (15:00)
[2019-05-18] MEDS ORDERED: NITROGLYCERIN TOP ONE (15:12)
--- NOTE | 2019-05-18 15:22 | Diag Imaging Result Doc PS360 ---
EXAM: CHEST-1 VIEW HISTORY: chest pain TECHNIQUE: Chest single view COMPARISON: 12/16/2016 FINDINGS: The lungs are well expanded. The heart is not enlarged. The vessels are not distended. There are no infiltrates. No effusion identified. Old injury to the right clavicle. IMPRESSION: Negative exam. Electronically signed by Zeke Cobb 05/18/2019 3:20 PM
[2019-05-18 15:23] LABS: BASO# 0.07 X1000 (0.0-0.2); BASO% 0.8 % (0.0-0.8); EOS# 0.27 X1000 (0.0-0.7); EOS% 3.3 % (0.0-10.0); HEMATOCRIT 38.1 % (42.0-52.0); HEMOGLOBIN 12.9 g/dL (14.0-18.0); MCH 29.6 PG (27-31); MCHC 33.9 g/dL (33-37); MCV 87.4 FL (81-99); MONO# 0.63 X1000 (0.11-0.59); MONO% 7.6 % (1.7-9.3); MPV 9.9 FL (7.4-10.4); NEUT# 4.41 X1000 (1.4-6.5); NEUT% 53.3 % (42.2-75.2); PLT 221 X1000 (130-400); RBC 4.36 XMIL (4.7-6.1); RDW 12.4 % (11.5-14.5); WBC 8.28 X1000 (4.8-10.8)
[2019-05-18 15:54] LABS: AGAP 8; ALB/GLOB RATIO 1.9; ALBUMIN 4.4 g/dL (3.5-5.0); ALKALINE PHOSPHATASE 63 U/L (32-122); BUN 16 mg/dL (8-22); CALCIUM 8.6 mg/dL (8.8-10.2); CHLORIDE 104 mmol/L (98-107); COSMO 279; CREATININE 1.1 mg/dL (0.7-1.2); ESTIMATED GFR > 60; GLUCOSE 104 mg/dL (70-104); GOT 13 U/L (10-34); GPT 12 U/L (10-44); POTASSIUM 3.7 mmol/L (3.5-5.1); SODIUM 139 mmol/L (136-145); TCO2 27 mmol/L (25-35); TOTAL BILIRUBIN 0.47 mg/dL (0.20-1.00); TOTAL PROTEIN 6.7 g/dL (6.3-8.3)
[2019-05-18 16:05] LABS: URINE SOURCE CLEAN CATCH
[2019-05-18 16:07] LABS: BILIRUBIN URINE NEGATIVE (NEGATIVE); BLOOD URINE NEGATIVE (NEGATIVE); COLOR YELLOW; GLUCOSE URINE NEGATIVE (NEGATIVE); KETONE URINE NEGATIVE (NEGATIVE); LEUKOCYTES URINE NEGATIVE (NEGATIVE); NITRITE URINE NEGATIVE (NEGATIVE); PROTEIN URINE NEGATIVE (NEGATIVE); SP GRAVITY URINE 1.024; TURBIDITY URINE CLEAR (CLEAR); UROBILINOGEN URINE NORMAL (NORMAL)
[2019-05-18 16:08] LABS: UR EPITHELIAL CELLS <10 /HPF (<10); URINE BACTERIA NEGATIVE /HPF; URINE RBC <10 /HPF (<10); URINE WBC <10 /HPF (<10)
--- NOTE | 2019-05-18 16:47 | ED EKG INTERP ---
This chart was entered by Perri Zeng Scribe, acting as scribe for Zack Mitchell MD. EKG Interpretation - EKG Time of EKG reading by physician:: 14:37 EKG Read and Signed by:: Zack Mitchell EKG Interpretation (*Must complete 3 of following elements*): Normal Rate: 66 Rhythm: sinus with marked sinus arrhythmia QRS: normal ST Wave: normal - EKG # 2 Time of EKG reading by physician:: 16:41 EKG Read and Signed by:: Zack Mitchell EKG Interpretation (*Must complete 3 of following elements*): Normal Rate: 51 Rhythm: sinus bradycardia w/ sinus arrhythmia QRS: normal ST Wave: normal Prior EKG Comparison: unchanged from prior (05/18/19@14:37) Attestation - Physician/ RICKIE Attestation Patient care was provided by Advanced Practice Provider:: No The physician spent face to face time with patient:: Yes Advanced Practice Provider documentation review:: Supervising physician onsite and consulted in the evaluation and care of this patient. The physician did have a face to face encounter with the patient. This chart was documented by the indicated scribe, (Perri Zeng Scribe) and accurately reflects the services I performed and decisions made by me, Zack Mitchell MD, as attested by the provider's signature.
[2019-05-18 17:18] LABS: UR AMPHETAMINES QUAL NONE DETECTED (NONE DETECT); UR BARBITUATES QUAL NONE DETECTED (NONE DETECT); UR BENZODIAZEPIN QUAL NONE DETECTED (NONE DETECT); UR CANNABINOIDS QUAL NONE DETECTED (NONE DETECT); UR COCAINE QUAL NONE DETECTED (NONE DETECT); UR METHADONE QUAL NONE DETECTED (NONE DETECT); UR OPIATES QUAL NONE DETECTED (NONE DETECT); UR OXYCODONE QUAL NONE DETECTED (NONE DETECT); UR PCP QUAL NONE DETECTED (NONE DETECT)
--- NOTE | 2019-05-18 17:26 | EKG Report ---
Test Performed on : 05/18/2019 2:37:55 PM Test Reason : CP Blood Pressure : / mmHG Vent. Rate : 066 BPM Atrial Rate : 066 BPM P-R Int : 112 ms QRS Dur : 098 ms QT Int : 400 ms P-R-T Axes : 052 045 030 degrees QTc Int : 419 ms Sinus rhythm. with marked sinus arrhythmia. Otherwise normal ECG No previous ECGs available Unconfirmed Result
--- NOTE | 2019-05-18 17:26 | EKG Report ---
Test Performed on : 05/18/2019 4:32:44 PM Test Reason : CP Blood Pressure : / mmHG Vent. Rate : 051 BPM Atrial Rate : 051 BPM P-R Int : 118 ms QRS Dur : 102 ms QT Int : 426 ms P-R-T Axes : 055 040 022 degrees QTc Int : 392 ms Sinus bradycardia. with sinus arrhythmia. Otherwise normal ECG When compared with ECG of 18-MAY-2019 14:37, (Unconfirmed) No significant change was found Unconfirmed Result
[2019-05-18] MEDS ORDERED: TYLENOL PO PRN (18:12)
[2019-05-18] MEDS ORDERED: ZOFRAN IV PRN (18:12)
[2019-05-18] MEDS ORDERED: NS 1,000 ML IV SCH (18:12)
[2019-05-18] MEDS ORDERED: NITROGLYCERIN SL PRN (18:26)
--- NOTE | 2019-05-18 18:50 | HISTORY AND PHYSICAL ---
This is a 38-year-old white male with complaints of chest pain, sudden onset today but he has had pain for the last week or so, 38, no medical problems. He had an episode of chest pain today starting around 10 to 11 a.m. and had issues then. He describes pain as sharp, left-sided, nonradiating. He had persistent pain for about 15, 20 minutes. It got so bad he had to hold his chest kind of clutching his chest. He quit smoking he says about 2 weeks ago. He has been smoking for 20 years. He has been running 4 to 5 miles at least a couple times a week and notices a cough at the end of the running. There is no palpitations. Pain was nonradiating, nonreproducible with palpation. He still has a pain which he describes as a toothache in his chest right now, he could not tell that the pain was relieved by nitroglycerin. He did take Tylenol. He is a previous substance abuse. He has been clean for 13 months so he does not want to take any narcotics and does not even take cough medicine or ibuprofen because he just does not want to, he has had addiction issues in the past and he mostly used cocaine in the past and of course he says he has not used anything 13 months. Drug screen is clean this time. PAST MEDICAL HISTORY: Denies anything. PAST SURGICAL HISTORY: 1. 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 2. 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 FAMILY HISTORY: Is positive for CAD and his father had a pacemaker at 46, his aunt and his mother and uncle also had CAD in their 40s. SOCIAL HISTORY: Smokes a pack a day for last 20 years. He quit 2 weeks ago. ALLERGIES: No known drug allergies. MEDICATIONS: I do not think he takes anything regularly. REVIEW OF SYSTEMS: No weight loss, no appetite change. Otherwise negative times a 10 point review of systems. PHYSICAL EXAM: Blood pressure is 115/61, heart rate of 54, respiratory rate 16, temperature 97.9 degrees. GENERAL: Well-developed male, pleasant in no acute distress. HEENT: Head exam was normocephalic, atraumatic. Pupils equal, round, reactive to light. Extraocular movements were intact. He had moist mucous membranes. NECK: Supple. CARDIOVASCULAR: Was regular rate and rhythm. PULMONARY: Bilateral breath sounds clear to auscultation. GI: Was soft, nontender, nondistended. Bowel sounds are positive. LABORATORY DATA: White count was 8, hemoglobin and hematocrit 12 and 38, platelets of 221,000. Basic was normal. EKG showed sinus bradycardia but no significant ST changes. It says marked sinus arrhythmia but I think he just had a few PACs. I do not think he had Wenckebach . ASSESSMENT: This is a 38-year-old male with no medical history presenting with chest pain, shortness of breath, although I feel like it is somewhat atypical. 1. Atypical chest pain. Will do serial isoenzymes, check an echocardiogram, D-dimer and follow. Try to get a Cardiology opinion in the morning whether or not he needs further testing, his HOWARD score I think is still less than 2. His heart score, EKGs nonspecific, chest pain is atypical. His only risk factors are family history and tobacco abuse in which case and his heart score I think is around 2 as well but will see how things look. With his previous cocaine use he certainly could have cardiomyopathy related to that although clinically there is no evidence of heart failure at this point. 2. Polysubstance abuse history. We will watch him closely, make sure there is no further deterioration. This is a service admission. cc: Pedro Zhou MD
[2019-05-19] MEDS: NS 1,000 ML IV SCH ×2 (00:40→10:32)
[2019-05-19 06:51] LABS: BASO# 0.05 X1000 (0.0-0.2); BASO% 0.7 % (0.0-0.8); EOS# 0.26 X1000 (0.0-0.7); EOS% 3.6 % (0.0-10.0); HEMATOCRIT 37.4 % (42.0-52.0); HEMOGLOBIN 12.3 g/dL (14.0-18.0); LYMPH% 29.5 % (20.5-51.1); MCH 29.4 PG (27-31); MCHC 32.9 g/dL (33-37); MCV 89.5 FL (81-99); MONO# 0.56 X1000 (0.11-0.59); MONO% 7.9 % (1.7-9.3); MPV 10.6 FL (7.4-10.4); NEUT# 4.16 X1000 (1.4-6.5); NEUT% 58.3 % (42.2-75.2); PLT 208 X1000 (130-400); RBC 4.18 XMIL (4.7-6.1); RDW 12.7 % (11.5-14.5); WBC 7.13 X1000 (4.8-10.8)
[2019-05-19 07:27] LABS: AGAP 8; ALB/GLOB RATIO 1.8; ALBUMIN 3.7 g/dL (3.5-5.0); ALKALINE PHOSPHATASE 54 U/L (32-122); BUN 17 mg/dL (8-22); CALCIUM 8.8 mg/dL (8.8-10.2); CHLORIDE 111 mmol/L (98-107); CHOLESTEROL 164 mg/dL (0-200); COSMO 289; CREATININE 0.8 mg/dL (0.7-1.2); ESTIMATED GFR > 60; GLUCOSE 116 mg/dL (70-104); GOT 11 U/L (10-34); GPT 10 U/L (10-44); HDL 41 mg/dL (35-55); LDL 106 mg/dL; POTASSIUM 4.3 mmol/L (3.5-5.1); SODIUM 144 mmol/L (136-145); TCO2 25 mmol/L (25-35); TOTAL BILIRUBIN 0.32 mg/dL (0.20-1.00); TOTAL PROTEIN 5.8 g/dL (6.3-8.3); TRIGLYCERIDES 87 mg/dL (39-160); VLDL 17 mg/dL
[2019-05-19] MEDS ORDERED: ASPIRIN EC PO SCH (09:00)
--- NOTE | 2019-05-19 09:57 | Diag Imaging Result Doc PS360 ---
CHEST-2 VIEWS - 05/19/2019 INDICATION: chest pain, cough COMPARISON: 05/18/2019 FINDINGS: The lungs are normally expanded and clear. Heart size and mediastinal contours are normal. No pneumothorax or pleural effusion. IMPRESSION: Negative exam. Electronically signed by Antony German 05/19/2019 9:55 AM
--- NOTE | 2019-05-19 10:21 | CONSULTATION ---
DATE OF CONSULTATION: 05/19/2019 IMPRESSION: 1. Atypical chest pain. ECG benign and serial cardiac enzymes normal. Consider more likely pulmonary source or musculoskeletal. 2. Chronic cigarette use. 3. Previous substance abuse in the past but not currently. RECOMMENDATIONS: 1. Check PA and lateral chest x-ray. 2. Consider screening exercise treadmill study although patient's symptoms highly atypical for myocardial ischemia, and there is no objective evidence of myocardial ischemia despite extended duration of chest discomfort. HISTORY: This 38-year-old white male with past history of chronic cigarette use, was admitted to the emergency room for evaluation of chest pain. He relates that yesterday around mid morning, started having pressure in the left chest region. Discomfort was constant for a pretty good number hours and actually did not completely resolve until after he was here in the hospital late last night. Discomfort was not pleuritic nor positional. He noted no relationship of discomfort to movement of the torso or anything he might eat. Given persistence of discomfort, he came to the hospital and was admitted. ECG is benign, and serial cardiac enzymes are normal. He relates he has had recent problems with cough starting 4 to 6 weeks ago. He might have some clear mucus coughed up. He has not any fever. He quit smoking about 10 days ago because of cough and some associated chest discomfort. PAST MEDICAL HISTORY: 1. Negative for hypertension, diabetes mellitus, hyperlipidemia. 2. History of previous substance abuse with cocaine in the past but not currently. PAST SURGICAL HISTORY: Includes 1. Bilateral inguinal hernia repair. 2. Previous right hip surgery that ultimately required bone graft and a body cast for 2 years when he was less than age 12. 3. He is also status post amputation of left first index finger. ALLERGIES: 1. No known drug allergies. CURRENT MEDICATIONS: He is on no medications prior to admission. SOCIAL HISTORY: He has history of previous smoking at a rate of 1 pack a day for approximately 20 years and quit about 10 days ago. He has history of previous substance abuse with cocaine but not currently. FAMILY HISTORY: Negative for premature coronary disease. Family history is positive for coronary disease. REVIEW OF SYSTEMS: Pulmonary: Noncontributory beyond history of present illness. Gastrointestinal: Negative. Constitutional: Negative. Remainder review of systems negative/noncontributory beyond history of present illness with 14 total systems reviewed. PHYSICAL EXAMINATION: General: This is a well-developed adult male in no distress. Vital signs: Blood pressure 114/57. Heart rate 50 and regular. Oxygen saturation 98% on room air. HEENT: Extraocular movements intact. Mucous membranes are moist. Neck: Supple without jugular venous distention. There are no carotid bruits. Chest: Clear to auscultation bilaterally. Cardiac Exam: Reveals a regular rate and rhythm without appreciable murmur, rub or gallop. Abdomen: Soft. Bowel sounds are normal. Extremities: Without edema. Neurologic: Reveals him to be alert and fully oriented. Speech is fluent. Moves all 4 extremities equally well. Skin: Warm and dry. Psychiatric: Reveals mood to be appropriate. PERTINENT DATA: A 12-lead EKG demonstrates sinus bradycardia. LABORATORY DATA: Includes a white blood cell count 7.13, hematocrit 37.4, hemoglobin 12.3, platelet count 208,000. Sodium 144, potassium 4.3, chloride 111, carbon dioxide 25, BUN 17, creatinine 0.8, glucose 116. Initial troponin less than 0.01. Followup troponin less than 0.01 x3 sets. CPK 167 initially with followup CPK 152, triglycerides 87, total cholesterol 164, LDL cholesterol 106, HDL cholesterol 41. cc: Garland Torres MD
[2019-05-19 12:21] VITALS: BP 127/68
[2019-05-19] MEDS ORDERED: PRILOSEC PO ONE (12:27)
[2019-05-19] MEDS ORDERED: TORADOL IV ONE (12:27)
[2019-05-19] MEDS ORDERED: COLCRYS PO ONE (15:17)
[2019-05-19] MEDS ORDERED: COLCRYS PO SCH (21:00)
--- NOTE | 2019-05-19 22:24 | ECHO REPORT ---
ORDER DATE: 05/18/2019 MEASUREMENTS: Septal thickness 1.1, left ventricular internal diameter diastole 4.5, posterior wall thickness 1.1, left ventricular internal diameter in systole 3.2, aortic root 3.1, left atrium 3.4. SUMMARY: 1. Adequate quality study. 2. Aortic valve is trileaflet and opens normally on 2-dimensional images. Peak gradient across aortic valve is less than 10 mmHg. Mitral, tricuspid, and pulmonic valves are without evidence of structural abnormality with very mild mitral regurgitation and mild tricuspid regurgitation. Estimated systolic PA pressure by Doppler is 35 to 40 mmHg. Aortic root is normal in size. 3. Normal left ventricular dimensions demonstrated. Estimated left ventricular ejection fraction appears to be at least 60%. No regional wall motion abnormalities are evident. Left atrium, right atrium, right ventricle are normal in size with grossly preserved right ventricular systolic function. 4. Very small pericardial effusion without evidence of hemodynamic impact. 5. Appearance of inferior vena cava suggests normal central venous pressure. cc: MD Pedro Cifuentes MD
== END 2019-05-19 14:53 | disposition home or self-care (01) | DRG 313 ==
LOC: ED 14:28 → 3N 14:28 → OBSVTOIN 17:58
PROVIDERS: ATTEND Internal Medicine